=== PATIENT | male | born 1995 | race Caucasian/White ===

== ENCOUNTER 2023-07-18 09:33 | Emergency (ER) | payer SELFPAY ==
[~2023-07-18] VITALS: Ht 172.7 cm; Wt 88.5 kg
[2023-07-18 09:42] VITALS: BP 117/88; PULSE 94; RESP 18; TEMP 98.1; O2SAT 98
== END 2023-07-18 10:37 ==
LOC: MED 09:33
DX: V49.88XA Car occupant (driver) (passenger) injured in other specified transport accidents, initial encounter; Y93.89 Activity, other specified; Y92.89 Other specified places as the place of occurrence of the external cause; Y99.8 Other external cause status
CPT/HCPCS: 99283